=== PATIENT | female | born 1940 | race Caucasian/White ===

== ENCOUNTER 2016-09-08 22:35 | Inpatient (IN) | payer MEDICARE, OTHER ==
--- NOTE | ~2016-09-08 | CN ---
Consultation Report [facility] [place] [address] [place]. [address] NAME: TYREE MITCHELL : 40 STATUS : ADM Nuno PAT#: [id number] AGE: 75 ADM/REG DATE : 09/08/16 MR#: [id number] REPORT SERV DATE: 09/09/16 DICTATED BY: ELADIA ROSENBERG DATE: 09/09/16 REPORT STATUS : Draft TRANSCRIBED BY: ONESIMO DATE: 09/09/16 CONSULTATION THIS IS A CONSULT FROM SURGERY. DATE OF CONSULTATION: REASON FOR CONSULTATION: Small-bowel obstruction. HISTORY OF PRESENT ILLNESS: Ms. Mitchell is a 75-year-old female, who was last taken care of by my partner, Dejon Menezes, who is out of town currently. She presented with abdominal pain, nausea, vomiting. CT scan showed a partial small bowel obstruction with fecalization of the small bowel, dilated small bowel to 4.2 cm, but no discrete transition zone. Please see Dr. Menezes's dictation from 06/27/2015 for past medical history, past surgical history, allergies, medications, social history, family history. REVIEW OF SYSTEMS: As stated in the HPI, otherwise negative. PHYSICAL EXAMINATION: VITAL SIGNS: 98.3, 66, 18, 163/66. GENERAL: The patient is currently in her small bowel follow through, it is not available for examination. LABORATORY DATA: White count 10.1, H and H 14.8 and 42.6, platelets of 246. Electrolytes within normal range. Creatinine is 0.78. LFTs are normal. UA shows a trace of ketones. Her lactate is 0.[address] scan as mentioned above. ASSESSMENT AND PLAN: Small-bowel obstruction. Plan is for the small bowel follow through and I will wait the results. In the mean time, conservative management, NG tube, IV fluids, bowel rest, and await bowel function. However, if there is a complete obstruction, I will be happy to discuss surgery with the patient. It is my pleasure participating in the care of your patient. VANESSA/ONESIMO Eladia Rosenberg M.D. / [id number] CC: Consultation Report [place] [address] [address] [place]. [id number] NAME: TYREE MITCHELL : 40 STATUS : ADM Nuno PAT#: [id number] AGE: 75 ADM/REG DATE : 09/08/16 MR#: [id number] REPORT SERV DATE: 09/09/16 DICTATED BY: ELADIA ROSENBERG DATE: 09/09/16 REPORT STATUS : Draft TRANSCRIBED BY: MODL DATE: 09/09/16 Dejon Menezes M.D. Naomi Clifton M.D.
[~2016-09-08 22:35] MED LIST: 8 HOUR650 MG PO; AFINITOR5 MG PO; DULERA 100 MCG/13 GM INH; NATURA2 OP; NORCO1 TA1 PO; NORV5 PO; PRAVACHOL40 MG PO; PROGESTERONE PO; SINGULAIR1 PO; SOMATULINE SC; SOMATULINE90 MG/0.3 SC; T PO; TEARS NATURA OPH; ULTRAM50 PO; ZESTRIL30 MG PO; ZOFRANODT8 SL; [UNRECOGNIZED DRUG - OTHER] PO
[2016-09-08 23:10] LABS: BASOPHILS 0.4 %; BASOPHILS ABSOLUTE 0.04 10/3/uL (0.0-0.16); EOSINOPHILS 1.2 %; EOSINOPHILS ABSOLUTE 0.12 10/3/uL (0.0-0.53); IMMATURE GRANULOCYTES 0.1 %; IMMATURE GRANULOCYTES ABSOLUTE 0.01 10/3/uL (0.0-0.11); LYMPHOCYTES 10.9 %; MONOCYTES 5.6 %; MONOCYTES ABSOLUTE 0.57 10/3/uL (0.21-1.20); NEUTROPHILS 81.8 %; NEUTROPHILS ABSOLUTE 8.27 10/3/uL (2.02-8.40); RBC DISTRIBUTION WIDTH 12.7 % (12.0-16.0)
[2016-09-08 23:11] LABS: ER CBC TAT 0 Hrs 07 Mins; HEMATOCRIT 42.6 % (36.0-48.0); HEMOGLOBIN 14.8 g/dL (12.0-16.0); MANUAL DIFF NO %; MEAN CORPUS HGB CONC 34.7 g/dL (32.0-36.0); PLATELET COUNT 246 10/3/uL (150-400); RED CELL COUNT 4.63 10/6/uL (4.0-5.6); WHITE BLOOD CELLS 10.1 10/3/uL (4.5-10.5)
[2016-09-08 23:23] LABS: ALBUMIN 4.1 G/DL (3.5-5.0); ALKALINE PHOSPHATASE 92 U/L (45-117); CHLORIDE, SERUM 104 MMOL/L (96-112); CO2 (CARBON DIOXIDE) 28 MMOL/L (24-34); CREATININE 0.78 MG/DL (0.55-1.02); GFR AFRICAN AMERICAN 86 ML/MIN (>=60); GFR NON AFRICAN AMERICAN 74 ML/MIN (>=60); GLOBULIN 4.1 G/DL (2.5-4.1); GLUCOSE, SERUM 135 MG/DL (60-99); POTASSIUM, SERUM 4.4 MMOL/L (3.5-5.3); SGOT(AST) 15 U/L (5-40); SGPT(ALT) 21 U/L (5-65); SODIUM, SERUM 142 MMOL/L (135-148); TOTAL BILIRUBIN 0.5 MG/DL (0-1.2); TOTAL PROTEIN 8.2 G/DL (6.0-8.5)
[2016-09-08 23:27] LABS: LACTATE 0.8 MMOL/L (0.3-2.4)
[2016-09-08 23:28] LABS: BUN (BLOOD UREA NITROGEN) 20 MG/DL (6-23); CALCIUM, SERUM 9.4 MG/DL (8.5-10.4)
[2016-09-08 23:47] LABS: ASCORBIC ACID (UR NOT ORDER) 40 (NEG); BILIRUBIN, URINE NEGATIVE (NEG); ER URINALYSIS TAT 0 Hrs 00 Mins; KETONE, URINE TRACE MG/DL (NEG); LEUKOCYTE ESTERASE(NOT OR NEG (NEG); NITRITE (URINE) NEG (NEG); WBC (NOT ORDERED) (RFLEX) 1 (0-5)
[2016-09-09] MEDS ORDERED: SOMATULINE90 MG/0.3 SC (00:34)
[2016-09-09] MEDS ORDERED: NORV5 PO (00:47)
[2016-09-09] MEDS ORDERED: PRAVACHOL40 MG PO (00:47)
[2016-09-09] MEDS ORDERED: ZESTRIL30 MG PO (00:47)
[2016-09-09] MEDS ORDERED: FLONASE NAS (00:48)
[2016-09-09] MEDS ORDERED: DULERA 100 MCG/13 GM INH (00:48)
[2016-09-09] MEDS ORDERED: PROAIR HFA INH (00:50)
[2016-09-09] MEDS ORDERED: MSIMMR15 PO (00:50)
[2016-09-09] MEDS ORDERED: ZOFRAN8 PO (00:50)
[2016-09-09] MEDS ORDERED: LEVSINTAB PO/SL (00:51)
[2016-09-09] MEDS ORDERED: ATV1 PO (00:51)
[2016-09-09 06:55] LABS: CHLORIDE, SERUM 107 MMOL/L (96-112); CO2 (CARBON DIOXIDE) 27 MMOL/L (24-34); CREATININE 0.68 MG/DL (0.55-1.02); GFR AFRICAN AMERICAN 99 ML/MIN (>=60); GFR NON AFRICAN AMERICAN 86 ML/MIN (>=60); GLUCOSE, SERUM 119 MG/DL (60-99); SODIUM, SERUM 140 MMOL/L (135-148)
[2016-09-09 06:58] LABS: BUN (BLOOD UREA NITROGEN) 14 MG/DL (6-23)
[2016-09-11] MEDS ORDERED: MIRALAX POWDER1 PKT PO (09:17)
[2016-09-11] MEDS ORDERED: REG PO (09:23)
[2016-12-02] MEDS ORDERED: MSIMMR15 PO (11:43)
[2016-12-02] MEDS ORDERED: ZESTRIL30 MG PO (11:44)
[2016-12-02] MEDS ORDERED: NORV5 PO ×2 (11:44→11:50)
[2016-12-02] MEDS ORDERED: DULERA 100 MCG/13 GM PO ×2 (11:45→11:46)
[2016-12-02] MEDS ORDERED: SOMATULINE90 MG/0.3 SC (11:47)
[2016-12-02] MEDS ORDERED: LEVSINTAB PO (11:47)
[2016-12-02] MEDS ORDERED: ZOFRANODT8 PO (11:48)
[2016-12-02] MEDS ORDERED: PRAVACHOL40 MG PO (11:48)
[2016-12-02] MEDS ORDERED: MIRALAX POWDER1 PKT PO (12:07)
[2016-12-02] MEDS ORDERED: PROAIR HFA PO (12:07)
[2016-12-02] MEDS ORDERED: GENTEAL OPH (12:08)
[2016-12-02] MEDS ORDERED: FLONASE NAS (12:08)
[2016-12-03] MEDS ORDERED: PROTONIX PO (10:08)
[2016-12-03] MEDS ORDERED: ZOFRAN ODT4 MG PO (10:08)
== END 2016-09-11 10:41 | disposition home or self-care (01) | DRG 390 ==
LOC: ER 22:35 → 1SO 22:37
PROVIDERS: Emergency Medicine; Nurse Practitioner
DX: K56.60 Unspecified intestinal obstruction (principal); I10 Essential (primary) hypertension; J45.909 Unspecified asthma, uncomplicated; Z79.899 Other long term (current) drug therapy; Z88.1 Allergy status to other antibiotic agents
CPT/HCPCS: 74000; 74176; 74250; 80048; 80053; 81001; 83605; 83690; 85025; 94640; 96374; 99285; A9270-GY; J2405; J2765